=== PATIENT | female | born 1985 | race Two or more races ===

== ENCOUNTER 2017-06-25 11:03 | Emergency (ER) | payer MEDICAID ==
[~2017-06-25] VITALS: Ht 167.6 cm; Wt 117.9 kg
[~2017-06-25 11:03] MED LIST: IBUPROFEN600 MG ORAL; NKM; ROBAXIN-750750 MG PO
[2017-06-25 11:20] VITALS: BP 113/84
--- NOTE | 2017-06-25 11:30 | Emergency Room Report ---
History of Present Illness General Chief Complaint: Abdominal Pain Source: Patient Present Illness HPI Patient presents with complaints of left lower suprapubic/abdominal pain Ongoing for the past one day 5/10 sharp pain Mild radiation upward to the left flank area Denies any vomiting or diarrhea denies any fevers or chills denies any other right-sided abdominal pain Patient's last menstrual cycle was 2 months ago And she states that she is fairly irregular Denies any vaginal discharge Allergies: Coded Allergies: No Known Allergies (Unverified , 07/26/13) Patient History Past Medical History: see triage record Pertinent Family History: none Last Menstrual Period: 04/12/17 Now: No Reviewed Nursing Documentation: PMH: Agreed, PSxH: Agreed Nursing Documentation-PMH Past Medical History: No Stated History Review of Systems All Other Systems: negative except mentioned in HPI Physical Exam Vital Signs Date Time Temp Pulse Resp B/P Pulse Ox O2 Delivery O2 Flow Rate FiO2 06/25/17 11:08 97.9 86 16 110/80 97 Room Air Sp02 EP Interpretation: reviewed, normal General Appearance: well appearing, no apparent distress Head: normocephalic, atraumatic Eyes: bilateral eye EOMI, bilateral eye PERRL ENT: hearing grossly normal, normal pharynx, TMs + canals normal, uvula midline Neck: full range of motion, supple, no meningismus, no bony tend Respiratory: lungs clear, normal breath sounds, no rhonchi, no respiratory distress, no retraction, no accessory muscle use Cardiovascular #1: normal peripheral pulses, regular rate, rhythm, no edema, no gallop, no JVD, no murmur Gastrointestinal: normal bowel sounds, non tender - However subjectively complains of left lower discomfort on palpation, soft, no mass, no organomegaly , non-distended, no guarding, no hernia, no pulsatile mass, no rebound Genitourinary: no CVA tenderness Musculoskeletal: normal inspection Neurologic: oriented x3, responsive, cat scan technologist III-XII nml as tested, motor strength/ tone normal, sensory intact Psychiatric: mood/affect normal Skin: normal color, no rash, warm/dry, palpation normal Lymphatic: normal inspection, no adenopathy Medical Decision Making Diagnostic Impression: Primary Impression: Abdominal pain ER Course Given the history examined presentation patient had multiple ultrasound obtained Consideration for infection, versus ovarian torsion considered Ultrasound was essentially negative Patient's urine sample is also clear And the patient is stable for close outpatient followup Labs Test 06/25/17 11:40 Urine Color Pale yellow Urine Appearance Slightly cloudy Urine pH 6 (4.5-8.0) Urine Specific [place] 1.015 (1.005-1.035) Urine Protein Negative (NEGATIVE) Urine Glucose (UA) Negative (NEGATIVE) Urine Ketones Negative (NEGATIVE) Urine Occult Blood 3+ (NEGATIVE) Urine Nitrite Negative (NEGATIVE) Urine Bilirubin Negative (NEGATIVE) Urine Urobilinogen Normal MG/DL (0.0-1.0) Urine Leukocyte Esterase 1+ (NEGATIVE) Urine RBC 2-4 /HPF (0 - 2) Urine WBC 2-4 /HPF (0 - 2) Urine Squamous Epithelial Cells Few /LPF (NONE/OCC) Urine Bacteria Few /HPF (NONE) Urine HCG, Qualitative Negative CT/MRI/US Diagnostic Results CT/MRI/US Diagnostic Results : Impression Pelvic ultrasound: No acute disease Last Vital Signs Date Time Temp Pulse Resp B/P Pulse Ox O2 Delivery O2 Flow Rate FiO2 06/25/17 11:08 97.9 86 16 110/80 97 Room Air Status: improved Disposition: HOME, SELF-CARE Condition: Improved Scripts Ibuprofen* (MOTRIN*) 600 Mg Tablet 600 MG ORAL Q8H Y for For Pain, #20 TAB 0 Refills Prov: NIA LAWRENCE D.O. 06/25/17 Referrals: [facility] (PCP) Additional Instructions: Patient is provided with the discharge instructions notified to follow up with primary doctor in the next 2-3 days otherwise return to the er with any worsening symptoms. Please note that this report is being documented using [employer] technology. This can lead to erroneous entry secondary to incorrect interpretation by the dictating instrument. NIA LAWRENCE D.O. Jun 25, 2017 11:30
[2017-06-25 11:47] LABS: APPEARANCE,URINE SLIGHTLY CLOUDY; KETONES,URINE NEGATIVE (NEGATIVE); LEUKOCYTE ESTERASE ,URINE 1+ (NEGATIVE); NITRITE,URINE NEGATIVE (NEGATIVE); PH,URINE 6 (4.5-8.0); PROTEIN,URINE NEGATIVE (NEGATIVE); UROBILINOGEN,URINE NORMAL MG/DL (0.0-1.0)
[2017-06-25 11:54] LABS: BACTERIA,URINE FEW /HPF; SQUAMOUS EPITHELIAL CELL,UR FEW /LPF (NONE/OCC)
[2017-06-25] MEDS ORDERED: IBUPROFEN600 MG ORAL (12:41)
[2017-06-25 12:55] VITALS: BP 124/86
--- NOTE | 2017-06-25 14:52 | Diagnostic Imaging Report ---
Indication: Left-sided pelvic pain and back pain negative urine test Technique: Transabdominal and transvaginal images Comparison: 02/21/2010 Findings: Uterus measures 10.1 cm length by 4 cm AP. Is retroflexed Endometrium measures 5 mm thick. Configuration of the endometrium suggests bicornuate uterus. Right ovary measures 3.4 cm length. Left ovary measures 3.2 cm length. No adnexal mass demonstrated. No free cul-de-sac fluid. Normal ovarian blood flow demonstrated. When compared to prior exam previously demonstrated endometrial gestational sac and subchorionic hemorrhage are no longer evident Impression: No acute or significant abnormality. 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
== END 2017-06-25 13:08 | disposition home or self-care (01) ==
LOC: EMR 11:18
DX: R10.30 Lower abdominal pain, unspecified (principal)
CPT/HCPCS: 76830; 76856; 81003; 81025; 99284

== ENCOUNTER 2019-01-30 17:19 | Emergency (ER) | payer MEDICAID ==
[~2019-01-30] VITALS: Ht 167.6 cm; Wt 124.7 kg
--- NOTE | 2019-01-30 17:39 | Emergency Room Report ---
History of Present Illness General Chief Complaint: Nausea Source: Patient Present Illness HPI 33 YO Female presents to the ED Requesting testing. pt. reports being 12 days late for her cycle .pt. states that in the past with her previous two pregnancies the urine testing would show negative and the blood is the only thing that was most reliable for her. denies abdominal pain, tenderness, or vaginal d/c. Pt. reports one episode of feeling dizzy yesterday that lasted less than 20 seconds and has completely resolved. She denies VIGIL, recent trauma or fall. Pt. denies pain. Allergies: Coded Allergies: No Known Allergies (Unverified , 01/30/19) Patient History Past Medical History: see triage record Past Surgical History: none Pertinent Family History: none Last Menstrual Period: dec 12, 2018 Reviewed Nursing Documentation: PMH: Agreed; PSxH: Agreed Nursing Documentation-PMH Past Medical History: No History, Except For Review of Systems All Other Systems: negative except mentioned in HPI Physical Exam Vital Signs Date Time Temp Pulse Resp B/P (MAP) Pulse Ox O2 Delivery O2 Flow Rate FiO2 01/30/19 17:30 98.1 82 16 122/78 97 Room Air Sp02 EP Interpretation: reviewed, normal General Appearance: no apparent distress, alert, GCS 15, non-toxic Head: normocephalic, atraumatic Eyes: bilateral eye normal inspection, bilateral eye PERRL ENT: hearing grossly normal, normal voice Neck: full range of motion Respiratory: chest non-tender, lungs clear, normal breath sounds, speaking full sentences Cardiovascular #1: regular rate, rhythm Gastrointestinal: normal bowel sounds, non tender, soft Genitourinary: normal inspection, no CVA tenderness Musculoskeletal: back normal, gait/station normal, normal range of motion, non- tender Neurologic: alert, oriented x3, responsive, motor strength/tone normal, sensory intact, normal gait, speech normal, other - no nystagmus. , grossly normal Psychiatric: judgement/insight normal Skin: normal color, no rash, warm/dry, well hydrated Medical Decision Making PA Attestation Dr. coronel is my supervising Physician whom patient management has been discussed with. Diagnostic Impression: Primary Impression: Negative test Additional Impression: Missed menses ER Course 33 YO Female presents to the ED Requesting testing. pt. reports being 12 days late for her cycle .pt. states that in the past with her previous two pregnancies the urine testing would show negative and the blood is the only thing that was most reliable for her. denies abdominal pain, tenderness, or vaginal d/c. Pt. reports one episode of feeling dizzy yesterday that lasted less than 20 seconds and has completely resolved. She denies VIGIL, recent trauma or fall. Pt. denies pain. Ddx considered but are not limited to , UTI, CVA, Head Injury, gastritis, dehydration just to name a few. Vital signs: are WNL, pt. is afebrile H&PE are most consistent with normal adult limited exam will do laboratory testing. ORDERS: none required at this time, the diagnosis is clinical ED INTERVENTIONS: None required at this time. DISCHARGE: At this time pt. is stable for d/c to home. Will provide printed patient care instructions, and any necessary prescriptions. Care plan and follow up instructions have been discussed with the patient prior to discharge. Labs Test 01/30/19 17:46 01/30/19 18:45 Urine Color Pale yellow Urine Appearance Clear Urine pH 7 (4.5-8.0) Urine Specific [place] 1.010 (1.005-1.035) Urine Protein Negative (NEGATIVE) Urine Glucose (UA) Negative (NEGATIVE) Urine Ketones Negative (NEGATIVE) Urine Blood 4+ (NEGATIVE) Urine Nitrite Negative (NEGATIVE) Urine Bilirubin Negative (NEGATIVE) Urine Urobilinogen Normal MG/DL (0.0-1.0) Urine Leukocyte Esterase 1+ (NEGATIVE) Urine RBC 5-10 /HPF (0 - 2) Urine WBC 2-4 /HPF (0 - 2) Urine Squamous Epithelial Cells Moderate /LPF (NONE/OCC) Urine Bacteria Few /HPF (NONE) Urine HCG, Qualitative Negative (NEGATIVE) Human Chorionic Gonadotropin, Qual Negative (NEGATIVE) Last Vital Signs Date Time Temp Pulse Resp B/P (MAP) Pulse Ox O2 Delivery O2 Flow Rate FiO2 01/30/19 17:30 98.1 82 16 122/78 97 Room Air Disposition: HOME, SELF-CARE Condition: Stable Patient Instructions: Test Information Additional Instructions: Take medications as directed. Follow up with a LEATHER STRIPPING MACHINE OPERATOR within 3-5 days, even if your symptoms have resolved. Return sooner to ED if new symptoms occur, or current symptoms become worse. - Please note that this Emergency Department Report was dictated using [employer] js developer technology software, occasionally this can lead to erroneous entry secondary to interpretation by the dictation equipment. Mallory Pham Jan 30, 2019 17:38
--- NOTE | 2019-01-30 17:41 | NUR ---
ED Nurse Note:urine sent to labs
[2019-01-30 17:59] LABS: APPEARANCE,URINE CLEAR; BILIRUBIN, URINE NEGATIVE (NEGATIVE); COLOR,URINE PALE YELLOW; GLUCOSE, URINE (UA) NEGATIVE (NEGATIVE); KETONES,URINE NEGATIVE (NEGATIVE); LEUKOCYTE ESTERASE ,URINE 1+ (NEGATIVE); NITRITE,URINE NEGATIVE (NEGATIVE); PH,URINE 7 (4.5-8.0); PROTEIN,URINE NEGATIVE (NEGATIVE); UROBILINOGEN,URINE NORMAL MG/DL (0.0-1.0)
--- NOTE | 2019-01-30 18:44 | NUR ---
ED Nurse Note:urine sent to labs
[2019-01-30 18:53] VITALS: BP 122/78
[2019-01-30 19:25] VITALS: BP 122/78
--- NOTE | 2019-01-30 19:26 | NUR ---
ER DISCHARGE NOTE: Patient is cleared to be discharged per ERMD, pt is aox4, on room air, with stable vital signs. pt was given dc and prescription instructions, pt was able to verbalize understanding, pt is able to ambulate with steady gait. pt took all belongings.
== END 2019-01-30 19:24 | disposition home or self-care (01) ==
LOC: EMR 18:00
DX: Z32.02 Encounter for pregnancy test, result negative (principal); N91.0 Primary amenorrhea; R42 Dizziness and giddiness
CPT/HCPCS: 36415; 81003; 81025; 84703; 99283

== ENCOUNTER 2019-02-26 21:48 | Emergency (ER) | payer MEDICAID ==
[~2019-02-26] VITALS: Ht 172.7 cm; Wt 127.0 kg
[2019-02-26] MEDS ORDERED: Ketorolac 30mg Inj IV ONE (22:30)
--- NOTE | 2019-02-26 22:34 | Emergency Room Report ---
History of Present Illness General Chief Complaint: Abdominal Pain Source: Patient Present Illness HPI Is a 33-year-old female with a history of gallstone. She presents with chief complaint of epigastric pain and left upper quadrant pain. Onset last night after eating fish. She said it is sharp and crampy. [place]ingo nauseous. She forces him to vomit. No diarrhea. No radiation. Pain is 8 out of 10. Said she never had this pain before. She's been here multiple times for abdominal pain but usually lower quadrants. No other complaint. No dysuria or urinary frequency. Allergies: Coded Allergies: No Known Allergies (Unverified , 01/30/19) Patient History Past Medical History: see triage record, old chart reviewed Past Surgical History: other Pertinent Family History: none Social History: Denies: smoking Last Menstrual Period: 12/2018 Now: No Immunizations: other Reviewed Nursing Documentation: PMH: Agreed; PSxH: Agreed Nursing Documentation-PMH Past Medical History: No History, Except For Review of Systems Eye: Denies: eye pain, blurred vision ENT: Denies: ear pain, nose congestion, throat swelling Respiratory: Denies: cough, shortness of breath Cardiovascular: Denies: chest pain, palpitations Gastrointestinal: Reports: abdominal pain, nausea, vomiting; Denies: diarrhea Musculoskeletal: Denies: back pain, joint pain Skin: Denies: rash Neurological: Denies: headache, numbness Endocrine: Denies: increased thirst, increased urine Hematologic/Lymphatic: Denies: easy bruising All Other Systems: negative except mentioned in HPI Physical Exam Vital Signs Date Time Temp Pulse Resp B/P (MAP) Pulse Ox O2 Delivery O2 Flow Rate FiO2 02/26/19 21:56 98.6 105 16 125/85 98 Room Air Sp02 EP Interpretation: reviewed, normal General Appearance: well appearing, no apparent distress, alert, obese Head: normocephalic, atraumatic Eyes: bilateral eye PERRL, bilateral eye EOMI ENT: hearing grossly normal, normal pharynx Neck: full range of motion, supple, no meningismus Respiratory: chest non-tender, lungs clear, normal breath sounds Cardiovascular #1: regular rate, rhythm, no murmur Gastrointestinal: normal bowel sounds, no mass, no organomegaly, no bruit, non- distended, tenderness - Epigastric and left upper quadrant Musculoskeletal: back normal, gait/station normal, normal range of motion Psychiatric: mood/affect normal Skin: warm/dry Medical Decision Making Diagnostic Impression: Primary Impression: Abdominal pain Qualified Codes: R10.13 - Epigastric pain ER Course Patient presents with epigastric and left upper quadrant abdominal pain. This occur after eating fish. Patient said her at the same thing and also felt nausea. This may be secondary to food poisoning. No evidence of obstruction, cholecystitis or acute abdomen. Pain resolved now. We'll discharge home. Last Vital Signs Date Time Temp Pulse Resp B/P (MAP) Pulse Ox O2 Delivery O2 Flow Rate FiO2 02/26/19 21:56 98.6 105 16 125/85 98 Room Air Status: improved Disposition: HOME, SELF-CARE Condition: Stable Patient Instructions: Abdominal Pain, Adult Additional Instructions: Follow-up with your doctor in 7 days. Return if worse. Saulo Silvestre MD Feb 26, 2019 22:34
[2019-02-26 22:39] LABS: APPEARANCE,URINE CLEAR; BILIRUBIN, URINE NEGATIVE (NEGATIVE); COLOR,URINE PALE YELLOW; GLUCOSE, URINE (UA) NEGATIVE (NEGATIVE); KETONES,URINE NEGATIVE (NEGATIVE); LEUKOCYTE ESTERASE ,URINE 1+ (NEGATIVE); NITRITE,URINE NEGATIVE (NEGATIVE); PH,URINE 7 (4.5-8.0); PROTEIN,URINE NEGATIVE (NEGATIVE); UROBILINOGEN,URINE NORMAL MG/DL (0.0-1.0)
[2019-02-26 22:42] LABS: EOSINOPHILS % (AUTO) 1.6 % (0.0-3.0); HEMOGLOBIN 14.5 G/DL (12.0-16.0); LYMPHOCYTES % (AUTO) 8.5 % (20.0-45.0); MEAN CORPUSCULAR VOLUME 87 FL (80-99); MONOCYTES % (AUTO) 4.3 % (1.0-10.0); NEUTROPHILS % (AUTO) 84.6 % (45.0-75.0); PLATELET COUNT 353 K/UL (150-450); RED BLOOD COUNT 4.94 M/UL (4.20-5.40); RED CELL DISTRIBUTION WIDTH 12.1 % (11.6-14.8); WHITE BLOOD COUNT 12.2 K/UL (4.8-10.8)
[2019-02-26 22:47] VITALS: BP 125/85
[2019-02-26 22:47] LABS: ANION GAP 8 mmol/L (5-15); BLOOD UREA NITROGEN 17 mg/dL (7-18); CALCIUM 9.2 MG/DL (8.5-10.1); CARBON DIOXIDE 29 MMOL/L (21-32); CHLORIDE 100 MMOL/L (98-107); CREATININE 0.8 MG/DL (0.55-1.30); POTASSIUM 3.7 MMOL/L (3.5-5.1); SODIUM 136 MMOL/L (136-145)
--- NOTE | 2019-02-26 22:50 | NUR ---
ER Nurse Note: Pt came from home with spouse c/o mid anterior abd pain. Pt stated pain occured after eating dinner last night 02/25. Pain is 9/10 cramping, non radiating. Prior to arrival, pt vomited orange tinged emesis. Pt active n/v at bedside, bowel sounds heard in all quadrants, VSS, no signs of distress. IV established; all med orders completed and awaiting result. Will continue to [facility].
[2019-02-26 22:51] LABS: ALANINE AMINOTRANSFERASE 47 U/L (12-78); ALBUMIN 3.6 G/DL (3.4-5.0); ALBUMIN/GLOBULIN RATIO 0.7 (1.0-2.7); ALKALINE PHOSPHATASE 97 U/L (46-116); ASPARTATE AMINO TRANSFERASE 20 U/L (15-37); BILIRUBIN,TOTAL 0.5 MG/DL (0.2-1.0)
[2019-02-26 23:44] VITALS: BP 125/85
--- NOTE | 2019-02-26 23:45 | NUR ---
ER Nurse Note: Pt seen, treated, medically cleared for discharge by ERMD. Discharge instructions given with repeat verbazliaion by pt. Instructed pt to follow up with primary care provider within one week. Pt a&ox4, VSS, no signs of distress. ID band removed. IV removed; site clean and bandaged. Pt left with all belongings with steady gait via own transportation.
== END 2019-02-26 23:45 | disposition home or self-care (01) ==
LOC: EMR 22:08
DX: R10.13 Epigastric pain (principal); R10.12 Left upper quadrant pain; R11.2 Nausea with vomiting, unspecified
CPT/HCPCS: 36415; 80053; 81003; 81025; 83690; 85025; 96361; 96374; 96375; 99284; J1885; J2405

== ENCOUNTER 2019-12-20 17:48 | Emergency (ER) | payer OTHER ==
[~2019-12-20] VITALS: Ht 170.2 cm; Wt 127.0 kg
--- NOTE | 2019-12-20 18:04 | NUR ---
ED Nurse Note: Pt walked in from home c/o abdominal cramping with spotting and possible . Respirations even and unlabored on room air. Vitals stable as documented.
--- NOTE | 2019-12-20 18:57 | NUR ---
ED Nurse Note: Pt in [place]
--- NOTE | 2019-12-20 19:13 | NUR ---
ED Nurse Note: Report given to JULIA Castro. Plan of care endorsed. Pt in stable condition.
[2019-12-20 19:16] LABS: BASOPHILS % (AUTO) 1.1 % (0.0-2.0); EOSINOPHILS % (AUTO) 1.6 % (0.0-3.0); HEMATOCRIT 45.3 % (37.0-47.0); LYMPHOCYTES % (AUTO) 25.1 % (20.0-45.0); MEAN CORPUSCULAR VOLUME 95 FL (80-99); MONOCYTES % (AUTO) 6.2 % (1.0-10.0); PLATELET COUNT 372 K/UL (150-450); RED BLOOD COUNT 4.77 M/UL (4.20-5.40); RED CELL DISTRIBUTION WIDTH 13.2 % (11.6-14.8)
--- NOTE | 2019-12-20 19:18 | NUR ---
ED Nurse Note: Report received from JULIA marinelli. No acute distress noted. Will continue to [facility].
[2019-12-20 19:24] LABS: APPEARANCE,URINE SLIGHTLY CLOUDY; BILIRUBIN, URINE NEGATIVE (NEGATIVE); COLOR,URINE PALE YELLOW; GLUCOSE, URINE (UA) NEGATIVE (NEGATIVE); KETONES,URINE NEGATIVE (NEGATIVE); LEUKOCYTE ESTERASE ,URINE 2+ (NEGATIVE); NITRITE,URINE NEGATIVE (NEGATIVE); PH,URINE 7 (4.5-8.0); PROTEIN,URINE NEGATIVE (NEGATIVE); UROBILINOGEN,URINE NORMAL MG/DL (0.0-1.0)
[2019-12-20 19:30] LABS: ANION GAP 9 mmol/L (5-15); BLOOD UREA NITROGEN 12 mg/dL (7-18); CALCIUM 9.5 MG/DL (8.5-10.1); CARBON DIOXIDE 29 MMOL/L (21-32); CHLORIDE 103 MMOL/L (98-107); CREATININE 0.8 MG/DL (0.55-1.30); SODIUM 140 MMOL/L (136-145)
[2019-12-20 19:35] LABS: ALANINE AMINOTRANSFERASE 30 U/L (12-78); ALBUMIN 3.5 G/DL (3.4-5.0); ALBUMIN/GLOBULIN RATIO 0.7 (1.0-2.7); ALKALINE PHOSPHATASE 107 U/L (46-116); ASPARTATE AMINO TRANSFERASE 20 U/L (15-37); BILIRUBIN,TOTAL 0.2 MG/DL (0.2-1.0)
--- NOTE | 2019-12-20 19:49 | Diagnostic Imaging Report ---
Indication: Pelvic pain, reported positive home urine test. Serum test negative, however. Technique: Transabdominal and transvaginal images of the pelvis. Doppler interrogation of the ovaries Comparison: 06/25/2017 Findings: Uterus measures 7.3 cm length by 3.3 cm AP. Endometrium measures 4 mm thick. No myometrial abnormality. The right ovary measures 2.6 cm length. The left ovary cannot be demonstrated. The right ovary demonstrates normal flow on Doppler. No free cul-de-sac fluid Impression: Essentially unremarkable exam. Note nonvisualization of the left ovary This essentially agrees with the preliminary interpretation provided overnight by [facility].
--- NOTE | 2019-12-20 20:25 | Emergency Room Report ---
History of Present Illness General Chief Complaint: Complications Source: Patient Present Illness HPI 34-year-old female presents to the emergency department complaining of right- sided adnexal pain and tenderness that is 9 out of 10 in severity. Patient reports acute onset approximately 2 hours ago. She states that she has had 2 questionably positive urine test at home. She states that she had some spotting on the toilet paper after urinating just prior to arrival. She reports cramping sensation. She states that she is 5 days late for her period. She reports she has 3 previous C-sections. She denies nausea, vomiting, fevers, chills, constipation or diarrhea. Patient denies urinary frequency, urgency or dysuria. She denies vaginal discharge other than the spotting that she experienced prior to arrival. She denies any aggravating or relieving factors at this time. Patient is also requesting refill of abx ointment for her rash at site that she has chronically and is been ongoing for several years. Allergies: Coded Allergies: No Known Allergies (Unverified , 01/30/19) Patient History Past Medical History: see triage record Past Surgical History: none Pertinent Family History: none Last Menstrual Period: 11/14/19 Now: Yes Reviewed Nursing Documentation: PMH: Agreed; PSxH: Agreed Nursing Documentation-PMH Past Medical History: No History, Except For Review of Systems All Other Systems: negative except mentioned in HPI Physical Exam Vital Signs Date Time Temp Pulse Resp B/P (MAP) Pulse Ox O2 Delivery O2 Flow Rate FiO2 12/20/19 17:52 97.5 86 17 104/83 (90) 99 Room Air Sp02 EP Interpretation: reviewed, normal General Appearance: no apparent distress, alert, GCS 15, non-toxic Head: normocephalic, atraumatic Eyes: bilateral eye normal inspection, bilateral eye PERRL ENT: hearing grossly normal, normal voice Neck: full range of motion Respiratory: lungs clear, normal breath sounds, speaking full sentences Cardiovascular #1: regular rate, rhythm Gastrointestinal: normal bowel sounds, non tender, soft, non-distended, no guarding Rectal: deferred Genitourinary: normal inspection, no CVA tenderness, other - Right adnexal ttp. Musculoskeletal: normal range of motion, gait/station normal, non-tender Neurologic: alert, motor strength/tone normal, oriented x3, sensory intact, responsive, speech normal Psychiatric: judgement/insight normal Skin: rash - pt. has macerated appearance along scar which is aparently chronic mild erythema. no crusting. Lymphatic: no adenopathy Medical Decision Making PA Attestation Dr. Rojas is my supervising Physician whom patient management has been discussed with. Diagnostic Impression: Primary Impression: UTI (urinary tract infection) Qualified Codes: N30.01 - Acute cystitis with hematuria Additional Impression: Adnexal pain ER Course 34-year-old female presents to the emergency department complaining of right- sided adnexal pain and tenderness that is 9 out of 10 in severity. Patient reports acute onset approximately 2 hours ago. She states that she has had 2 questionably positive urine test at home. She states that she had some spotting on the toilet paper after urinating just prior to arrival. She reports cramping sensation. She states that she is 5 days late for her period. She reports she has 3 previous C-sections. She denies nausea, vomiting, fevers, chills, constipation or diarrhea. Patient denies urinary frequency, urgency or dysuria. She denies vaginal discharge other than the spotting that she experienced prior to arrival. She denies any aggravating or relieving factors at this time. Patient is also requesting refill of abx ointment for her rash at site that she has chronically and is been ongoing for several years. Ddx considered but are not limited to Diverticulitis, acute appendicitis, ovarian torsion, ectopic , PID tubo-ovarian abscess, ovarian cyst. Vital signs: are WNL, pt. is afebrile H&PE are most consistent with possible ovarian cyst, however due to presentation will r/o torsion, ectopic, and stone. ORDERS: -CBC, CMP, LIPASE: WNL -UA:moderate bacteria -URINE HCG: Negative -Hcg Serum Quant: Negative <1 -Pelvic US Complete: WNL. ED INTERVENTIONS: - Toradol IV I discussed with this patient the results of ultrasound imaging finding of 9 to 11 cm right ovarian cyst. Discussed with this patient that this will require gynecological follow-up. DISCHARGE: At this time pt. is stable for d/c to home. Will provide printed patient care instructions, and any necessary prescriptions. Care plan and follow up instructions have been discussed with the patient prior to discharge. Labs Test 12/20/19 18:00 12/20/19 18:54 Urine Color Pale yellow Urine Appearance Slightly cloudy Urine pH 7 (4.5-8.0) Urine Specific [place] 1.005 (1.005-1.035) Urine Protein Negative (NEGATIVE) Urine Glucose (UA) Negative (NEGATIVE) Urine Ketones Negative (NEGATIVE) Urine Blood 4+ (NEGATIVE) Urine Nitrite Negative (NEGATIVE) Urine Bilirubin Negative (NEGATIVE) Urine Urobilinogen Normal MG/DL (0.0-1.0) Urine Leukocyte Esterase 2+ (NEGATIVE) Urine RBC 0-2 /HPF (0 - 2) Urine WBC 0-2 /HPF (0 - 2) Urine Squamous Epithelial Cells Few /LPF (NONE/OCC) Urine Bacteria Moderate /HPF (NONE) Urine HCG, Qualitative Negative (NEGATIVE) White Blood Count 11.0 K/UL (4.8-10.8) Red Blood Count 4.77 M/UL (4.20-5.40) Hemoglobin 14.0 G/DL (12.0-16.0) Hematocrit 45.3 % (37.0-47.0) Mean Corpuscular Volume 95 FL (80-99) Mean Corpuscular Hemoglobin 29.4 PG (27.0-31.0) Mean Corpuscular Hemoglobin Concent 30.9 G/DL (32.0-36.0) Red Cell Distribution Width 13.2 % (11.6-14.8) Platelet Count 372 K/UL (150-450) Mean Platelet Volume 7.8 FL (6.5-10.1) Neutrophils (%) (Auto) 66.0 % (45.0-75.0) Lymphocytes (%) (Auto) 25.1 % (20.0-45.0) Monocytes (%) (Auto) 6.2 % (1.0-10.0) Eosinophils (%) (Auto) 1.6 % (0.0-3.0) Basophils (%) (Auto) 1.1 % (0.0-2.0) Sodium Level 140 MMOL/L (136-145) Potassium Level 4.0 MMOL/L (3.5-5.1) Chloride Level 103 MMOL/L (98-107) Carbon Dioxide Level 29 MMOL/L (21-32) Anion Gap 9 mmol/L (5-15) Blood Urea Nitrogen 12 mg/dL (7-18) Creatinine 0.8 MG/DL (0.55-1.30) Estimat Glomerular Filtration Rate > 60 mL/min (>60) Glucose Level 92 MG/DL (74-106) Calcium Level 9.5 MG/DL (8.5-10.1) Total Bilirubin 0.2 MG/DL (0.2-1.0) Aspartate Amino Transf (AST/SGOT) 20 U/L (15-37) Alanine Aminotransferase (ALT/SGPT) 30 U/L (12-78) Alkaline Phosphatase 107 U/L (46-116) Total Protein 8.5 G/DL (6.4-8.2) Albumin 3.5 G/DL (3.4-5.0) Globulin 5.0 g/dL Albumin/Globulin Ratio 0.7 (1.0-2.7) Lipase 143 U/L (73-393) Human Chorionic Gonadotropin, Quant < 1 mIU/mL (1-6) CT/MRI/US Diagnostic Results CT/MRI/US Diagnostic Results #1: Imaging Test Ordered: Abdominal US Impression " Uterus is anteverted and measuring 7.3 x 3.3 x 5.65 cm. No significant pelvic free fluid. Ovaries are seen endo-vaginally and normal." Per official radiology report- Please see report for specific details. CT/MRI/US Diagnostic Results #2: Imaging Test Ordered: CT Abdomen and Pelvis with IV and Oral Contrast Impression "Complex septated right ovarian cyst. Minimal adjacent inflammation also noted. Possibly hemorrhagic cyst. No specific features to suggest ovarian torsion although the adjacent inflammation does raise concerns for such. Consider sonography for better Characterization. Prominent paraovarian veins, raises possibility of pelvic congestion from ovarian vein insufficiency. Normal appendix." Per official radiology report- Please see report for specific details. Last Vital Signs Date Time Temp Pulse Resp B/P (MAP) Pulse Ox O2 Delivery O2 Flow Rate FiO2 12/20/19 17:52 97.5 86 17 104/83 (90) 99 Room Air Status: improved Disposition: HOME, SELF-CARE Condition: Stable Scripts Ibuprofen* (MOTRIN*) 400 Mg Tablet 400 MG ORAL THREE TIMES A DAY, #30 TAB 0 Refills Prov: Mallory Pham 12/20/19 Chlorhexidine Gluconate* (HIBICLENS*) 118 Ml Liquid 1 APPLIC TP DAILY, #118 ML Prov: Mallory Pham 12/20/19 Mupirocin* (MUPIROCIN*) 22 Gm Oint...g. 1 APPLIC TOPIC THREE TIMES A DAY, #22 GM Prov: Mallory Pham 12/20/19 Nitrofurantoin Monohyd/M-Cryst* (MACROBID 100 MG*) 100 Mg Capsule 100 MG ORAL EVERY 12 HOURS for 7 Days, #14 CAP Prov: Mallory Pham 12/20/19 Referrals: NON PHYSICIAN (PCP) Patient Instructions: Urinary Tract Infection, [id number] Additional Instructions: Take medications as directed. Follow up with a Primary Care Provider in 3-5 days, even if your symptoms have resolved. --Please review list of primary care clinics, if you do not already have a primary care provider Return sooner to ED if new symptoms occur, or current symptoms become worse. - Please note that this Emergency Department Report was dictated using [employer] technology software, occasionally this can lead to erroneous entry secondary to interpretation by the dictation equipment. Mallory Pham Dec 20, 2019 20:25
[2019-12-20] MEDS ORDERED: Ketorolac 30mg Inj IV ONE (20:30)
[2019-12-20] MEDS ORDERED: HIBICLENS118 ML TP (20:33)
[2019-12-20] MEDS ORDERED: MUPIROCIN22 GM TOPIC (20:33)
[2019-12-20] MEDS ORDERED: NITROFURANTOIN100 M2 ORAL (20:33)
[2019-12-20] MEDS ORDERED: IBUPROFEN400 MG ORAL (20:33)
[2019-12-20 20:45] VITALS: BP 108/78
--- NOTE | 2019-12-20 20:45 | NUR ---
ER DISCHARGE NOTE: Patient is cleared to be discharged per ERMD, pt is aox4, on room air, with stable vital signs. pt was given dc and prescription instructions, pt was able to verbalize understanding, pt id band and iv site removed without complications. pt is able to ambulate with steady gait. pt took all belongings.
== END 2019-12-20 20:45 | disposition home or self-care (01) ==
LOC: EMR 18:20
DX: O23.40 Unspecified infection of urinary tract in pregnancy, unspecified trimester (principal); O26.899 Other specified pregnancy related conditions, unspecified trimester; R10.2 Pelvic and perineal pain; Z3A.00 Weeks of gestation of pregnancy not specified
CPT/HCPCS: 36415; 76856; 80053; 81001; 81025; 83690; 84702; 85025; 87086; 96374; J1885; Z7502; 99284